=== PATIENT | male | born 1980 | race Caucasian/White ===

== ENCOUNTER 2017-12-14 19:01 | Emergency (ER) | payer BC ==
[2017-12-14] MEDS ORDERED: Albuterol/Ipratropium 3.0-0.5 MG/3 ML Neb Soln NEB ONE (19:22)
--- NOTE | 2017-12-14 19:22 | EDM.PDOC ---
ED HPI GENERAL MEDICAL PROBLEM - General Chief Complaint: General Stated Complaint: Productive cough/shortness of breath/congestion Time Seen by Provider: 12/14/17 19:10 Source of Information: Reports: Patient History Limitations: Reports: No Limitations - History of Present Illness INITIAL COMMENTS - FREE TEXT/NARRATIVE: 37 YO WM with PMH of IDDM, tobacco use with history of bronchitis presents to ER with 3 day history of productive cough with shortness of breath and associated nausea. Pt reports his symptoms started as a head cold and quickly progressed to chest congestion. Pt reports subjective fever/chills and some dizziness with coughing. Pt reports he smokes approx 1 ppd x25 years. Diabetes is well controlled per patient. Onset Date: 12/12/17 Duration: Day(s): (3) Location: Reports: Chest Quality: Reports: Burning Severity: Mild Worsens with: Reports: Breathing Associated Symptoms: Reports: cough w sputum, Fever/Chills, Nausea/Vomiting, Shortness of Breath Middle Chest Pain Score (Numeric/FACES): 6 - Related Data Allergies Allergy/AdvReac Type Severity Reaction Status Date / Time propoxyphene Allergy Excitabilit Verified 12/14/17 19:59 [From Darvocet-N 100] y Home Meds: Home Meds Azithromycin [Zithromax] 250 mg PO DAILY #6 tab 12/14/17 [Rx] Insulin Aspart [NovoLOG] 7 - 9 unit SQ WITHMEALSANDBED 12/14/17 [History] Insulin Glarg,Human.Rec.Analog [Lantus Solostar] 34 units SQ 1600 12/14/17 [ History] Lisinopril 5 mg PO BEDTIME 12/14/17 [History] Metoprolol Succinate 50 mg PO DAILY 12/14/17 [History] Past Medical History HEENT History: Reports: Impaired Vision, Retinal Detachment, Other (See Below). 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 Denies: Afib, Aneurysm, Blood Clots/VTE/DVT, CAD, Heart Murmur, High Cholesterol , Hypertension, ND, Syncope Other Cardiovascular History: History of probable PSVT in 2001, complete right bundle branch block, short [place] interval, borderline CHF, and d-dimer elevation on 04/15/12 with no apparent further workup despite transfer to [place] at that time? Respiratory History: Reports: None. Denies: Asthma, COPD, Intubation, Previous , PE, Pneumothorax, Sleep Apnea Gastrointestinal History: Reports: None. Denies: Celiac Disease, Cholelithiasis , Chronic Constipation, Chronic Diarrhea, Gastritis, GERD, GI Bleed, Hepatitis, Hiatal Hernia, Inflammatory Bowel Disease, Irritable Bowel Syndrome, Jaundice, Pancreatitis Genitourinary History: Reports: Chronic Renal Insuffiency, Diabetic Nephropathy. Denies: Acute Renal Failure, Dialysis, Prostate Disorder, Renal Calculus, STD, Urinary Incontinence, UTI, Recurrent Musculoskeletal History: Reports: Fracture, Other (See Below). Denies: Arthritis, Back Pain, Chronic, Gout, Neck Pain, Chronic, Osteoarthritis, RA, SLE Other Musculoskeletal History: Left forearm fracture requiring surgery as below Neurological History: Reports: None. Denies: Cerebral Aneurysms, Concussion, CVA, Headaches, Chronic, Head Trauma, Migraines, Neuropathy, Diabetic, Neuropathy, Peripheral, Parkinson's, Seizure, TIA Psychiatric History: Reports: None. Denies: Abuse, Victim of, ADD, ADHD, Addiction, Anxiety, Depression, Psych Hospitalization(s), PTSD, Suicide Attempt , Suicidal Ideation Endocrine/Metabolic History: Reports: Diabetes, Type I, IDDM. Denies: Hypothyroidism Hematologic History: Reports: None. Denies: Anemia, Blood Transfusion(s), Iron Deficiency Immunologic History: Reports: None. Denies: AIDS, HIV, SLE Oncologic (Cancer) History: Reports: None. Denies: Basal Cell Carcinoma, Leukemia, Lymphoma, Malignant Melanoma, Non-Hodgkin's Lymphoma, Squamous Cell Carcinoma Dermatologic History: Reports: None. Denies: Eczema, Psoriasis - Infectious Disease History Infectious Disease History: Reports: None. Denies: C-Difficile, Chicken Pox, Measles, Meningitis, Mononucleosis, MRSA, Mumps, Rheumatic Fever, Rubella, Scarlet Fever, Shingles, VRE - Past Surgical History Head Surgeries/Procedures: Reports: None HEENT Surgical History: Reports: Detached Retina, Laser Surgery, Oral Surgery. Denies: Adenoidectomy, Cataract Surgery, Myringotomy w Tube(s), Tonsillectomy Cardiovascular Surgical History: Reports: None. Denies: Cardiac Ablation, Varicose, Vascular Surgery Respiratory Surgical History: Reports: None. Denies: Thoracentesis GI Surgical History: Reports: None. Denies: Appendectomy, Cholecystectomy, Colonoscopy, EGD, Hernia, Abdominal, Hernia, Inguinal, Hernia Repair/Other Male Surgical History: Reports: Circumcision, Other (See Below). Denies: Vasectomy Other Male Surgeries/Procedures: Circumcision as an Endocrine Surgical History: Reports: None Neurological Surgical History: Reports: None. Denies: C-Spine, Discectomy, Laminectomy, Lumbar Spine, Vertebroplasty Musculoskeletal Surgical History: Reports: Arthroscopic Knee, Arthroscopic Procedure, ORIF, Other (See Below). Denies: Carpal Tunnel, Ganglion Cyst Other Musculoskeletal Surgeries/Procedures:: bilateral arthroscopic knee surgery with probable meniscal repairs in 2006, ORIF of her right forearm fracture on 01/14/12 Oncologic Surgical History: Reports: None Dermatological Surgical History: Reports: None - Past Imaging History Past Imaging History: Reports: Stress Testing (Cardiac stress test in 2001) Social & Family History - Family History HEENT: Reports: None Cardiac: Reports: None. Denies: Afib, AICD, Aneurysm, Arrhythmia, Blood Clots/ VTE/DVT, CAD, High Cholesterol, Hypertension, ND, Syncope Respiratory: Reports: None. Denies: Asthma, COPD, PE, Pneumothorax, Sleep Apnea GI: Reports: None. Denies: Celiac Disease, Cholelithiasis, Colon Polyps, GERD, GI bleed, Inflammatory Bowel Disease, Irritable Bowel Syndrome, PUD : Reports: None. Denies: Dialysis, Renal Calculus, Renal Disease/ Insufficiency OBGYN: Reports: None Musculoskeletal: Reports: None. Denies: Gout, RA, SLE Neurological: Reports: None. Denies: Alzheimers Disease, Cerebral Aneurysms, CVA, Dementia, Migraines, MS, Parkinson's, Seizure, TIA Psychiatric: Reports: None. Denies: Abuse, Victim of, ADD, ADHD, Anxiety, Depression, Psych Hospitalization(s), PTSD, Suicide Attempt Endocrine/Metabolic: Reports: Diabetes, type II, IDDM, Other (See Below). Denies: Hypothyroidism Other Endocrine/Metabolic Family History: IDDM in maternal and paternal grandmothers Hematologic: Reports: None. Denies: Anemia, Transfusion Reaction Immunologic: Reports: None. Denies: AIDS, HIV, SLE Dermatologic: Reports: None. Denies: Eczema, Psoriasis Oncologic: Reports: None. Denies: Colon, Hodgkin's Lymphoma, Leukemia, Lymphoma , Non-Hodgkin's Lymphoma, Prostate, Skin - Caffeine Use Caffeine Use: Reports: Soda (6 sodas per day). 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[employer]) ED ROS GENERAL - Review of Systems Review Of Systems: See Below Constitutional: Reports: Chills, Fatigue HEENT: Reports: No Symptoms Respiratory: Reports: Shortness of Breath, Wheezing, Cough, Sputum Cardiovascular: Reports: Lightheadedness Endocrine: Reports: No Symptoms GI/Abdominal: Reports: Nausea : Reports: No Symptoms Musculoskeletal: Reports: No Symptoms Skin: Reports: No Symptoms Neurological: Reports: No Symptoms Psychiatric: Reports: No Symptoms Hematologic/Lymphatic: Reports: No Symptoms Immunologic: Reports: No Symptoms ED EXAM, GENERAL - Physical Exam Exam: See Below Exam Limited By: No Limitations General Appearance: Alert, WD/WN, No Apparent Distress Eye Exam: Bilateral Eye: PERRL Ears: Normal External Exam, Normal Canal, Hearing Grossly Normal, Normal TMs Nose: Clear Rhinorrhea Throat/Mouth: Normal Inspection, Normal Lips, Normal Teeth, Normal Gums, Normal Oropharynx, Normal Voice, No Airway Compromise Head: Atraumatic, Normocephalic Neck: Normal Inspection, Supple, Non-Tender, Full Range of Motion Respiratory/Chest: No Respiratory Distress, No Accessory Muscle Use, Chest Non- Tender, Wheezing Cardiovascular: Normal Peripheral Pulses, Regular Rate, Rhythm, No Edema, No Gallop, No JVD, No Murmur, No Rub GI/Abdominal: Normal Bowel Sounds, Soft, Non-Tender, No Organomegaly, No Distention, No Abnormal Bruit, No Mass Back Exam: Normal Inspection, Full Range of Motion, NT Extremities: Normal Inspection, Normal Range of Motion, Non-Tender, Normal Capillary Refill, No Pedal Edema Neurological: Alert, Oriented, CN II-XII Intact, Normal Cognition, Normal Gait, Normal Reflexes, No Motor/Sensory Deficits Psychiatric: Normal Affect, Normal Mood Skin Exam: Warm, Dry, Intact, Normal Color, No Rash Lymphatic: No Adenopathy EKG INTERPRETATION EKG Date: 12/14/17 Time: 19:27 Rhythm: NSR Rate (Beats/Min): 87 [place]: Normal P-Wave: Present QRS: Normal ST-T: Normal QT: Normal Comparison: NA - No Prior EKG Course - Vital Signs Last Recorded V/S: Last Vital Signs Temp 36.9 C 12/14/17 19:11 Pulse 97 12/14/17 20:31 Resp 19 12/14/17 20:31 BP 177/96 H 12/14/17 20:31 Pulse Ox 969 H 12/14/17 20:31 - Orders/Labs/Meds Orders: Active Orders 24 hr Category Date Time Status Accu Check [Blood Glucose Check, Bedside] [RC] ONETIME Care 12/14/17 20:47 Active Cardiac Monitoring [RC] . DIRECTED Care 12/14/17 19:16 Active EKG Documentation Completion [RC] ASDIRECTED Care 12/14/17 19:17 Active Peripheral IV Care [RC] . DIRECTED Care 12/14/17 19:16 Active RT Aerosol Therapy [RC] ASDIRECTED Care 12/14/17 19:22 Active RT Post Treatment Assessment [RC] Click to Edit Care 12/14/17 20:39 Active RT Pre-Treatment Assessment [RC] Click to Edit Care 12/14/17 20:39 Active Chest 2V [CR] Stat Exams 12/14/17 19:16 Ordered Azithromycin [Zithromax] Med 12/14/17 20:45 Active 500 mg PO DAILY Sodium Chloride 0.9% [Normal Saline] 1,000 ml Med 12/14/17 20:34 Active IV .BOLUS EKG 12 Lead [EK] Routine Ther 12/14/17 19:16 Ordered Medication Orders Azithromycin (Zithromax) 500 mg PO DAILY TOMMIE Last Admin: 12/14/17 20:41 Dose: 500 mg Sodium Chloride (Normal Saline) 1,000 mls @ 999 mls/hr IV .BOLUS ONE Stop: 12/14/17 21:34 Last Admin: 12/14/17 20:46 Dose: 999 mls/hr Labs: Laboratory Tests 12/14/17 12/14/17 Range/Units 19:40 19:40 WBC 8.30 (5.00-10.00) 10^3/uL RBC 4.33 L (4.50-6.00) 10^6/uL Hgb 14.0 (13.0-17.0) g/dL Hct 38.9 L (40.0-52.0) % MCV 89.8 (82.0-92.0) fL MCH 32.3 H (27.0-31.0) pg MCHC 36.0 (32.0-36.0) g/dL RDW 11.7 (11.5-14.5) % Plt Count 234 (150-400) 10^3/uL MPV 10.3 (7.4-10.4) fL Immature Gran % (Auto) 0.1 (0.0-5.0) % Neut % (Auto) 71.3 H (50.0-70.0) % Lymph % (Auto) 12.4 L (20.0-40.0) % Drew % (Auto) 10.5 H (2.0-8.0) % Eos % (Auto) 5.2 H (1.0-3.0) % Baso % (Auto) 0.5 (0.0-1.0) % Immature Gran # (Auto) 0.01 (0.00-0.50) 10^3/uL Neut # (Auto) 5.92 (2.50-7.00) 10^3/uL Lymph # (Auto) 1.03 (1.00-4.00) 10^3/uL Drew # (Auto) 0.87 H (0.10-0.80) 10^3/uL Eos # (Auto) 0.43 H (0.10-0.30) 10^3/uL Baso # (Auto) 0.04 (0.00-0.10) 10^3/uL Sodium 135 L (136-145) mmol/L Potassium 4.4 (3.3-5.3) mmol/L Chloride 99 (98-115) mmol/L Carbon Dioxide 24.6 (21.0-32.0) mmol/L Anion Gap 15.8 H (5-15) mmol/L BUN 26 H (6-25) mg/dL Creatinine 2.03 H (0.51-1.17) mg/dL Est Cr Clr Drug Dosing 51.44 mL/min Estimated GFR (MDRD) 37 mL/min Glucose 488 mg/dL Calcium 8.7 (8.7-10.3) mg/dL Total Bilirubin 0.3 (0.2-1.0) mg/dL AST 13 L (15-37) U/L ALT 28 (12-78) U/L Alkaline Phosphatase 98 (46-116) IU/L Creatine Kinase 113 (26-276) U/L CK-MB (CK-2) 2.10 (0.00-4.30) ng/mL Troponin I 0.04 (0.00-0.070) ng/mL Total Protein 7.1 (6.4-8.2) g/dL Albumin 3.24 (3.00-4.80) g/dL Meds: Medications Generic Name Dose Route Start Last Admin Trade Name Freq PRN Reason Stop Dose Admin Azithromycin 500 mg 12/14/17 20:45 12/14/17 20:41 Zithromax PO 500 mg DAILY TOMMIE Administration Sodium Chloride 1,000 mls @ 999 mls/hr 12/14/17 20:34 12/14/17 20:46 Normal Saline IV 12/14/17 21:34 999 mls/hr .BOLUS ONE Administration Discontinued Medications Generic Name Dose Route Start Last Admin Trade Name Freq PRN Reason Stop Dose Admin Albuterol 8 gm 12/14/17 20:39 Ventolin Hfa INH 12/14/17 20:40 ONETIME ONE Albuterol/Ipratropium 3 ml 12/14/17 19:22 12/14/17 19:48 Duoneb 3.0-0.5 Mg/3 Ml NEB 12/14/17 19:23 3 ml ONETIME ONE Administration Azithromycin Confirm 12/14/17 20:40 12/14/17 20:47 Zithromax Administered 12/14/17 20:41 Not Given Dose 500 mg .ROUTE .STK-MED ONE Sodium Chloride Confirm 12/14/17 20:34 12/14/17 20:46 Normal Saline Administered 12/14/17 20:35 Not Given Dose 1,000 mls @ as directed .ROUTE .STK-MED ONE Insulin Human Regular 12 unit 12/14/17 20:34 12/14/17 20:45 Novolin R SUBCUT 12/14/17 20:35 12 unit ONETIME ONE Administration Protocol - Radiology Interpretation Free Text/Narrative:: CXR- NAD - Re-Assessments/Exams Free Text/Narrative Re-Assessment/Exam: 12/14/17 20:38 discussed lab work with patient- instructed pt to take home medications as directed Departure - Departure Time of Disposition: 20:40 Disposition: Home, Self-Care 01 Condition: Good Clinical Impression: Tobacco use, Noncompliance with medication regimen, Hyperglycemia Acute bronchitis Qualifiers: Bronchitis organism: unspecified organism Qualified Code(s): J20.9 - Acute bronchitis, unspecified Hypertension Qualifiers: Hypertension type: essential hypertension Qualified Code(s): I10 - Essential ( primary) hypertension - Discharge Information Prescriptions: Azithromycin [Zithromax] 250 mg PO DAILY #6 tab Instructions: Health Risks of Smoking, Smoking Tobacco Information, Acute Bronchitis, Adult Referrals: PCP,Not In Area [Primary Care Provider] - Kerwin Mathur MD [Physician] - Forms: ED Department Discharge Additional Instructions: 1. discharge home 2. z-fan 3. albuterol inhaler 4. instructed pt to take his home medications as recommended 5. follow up with PCP for further evaluation and treatment 6. return to ER for worsening symptoms - My Orders Last 24 Hours: My Active Orders 12/14/17 19:16 Cardiac Monitoring [RC] . DIRECTED Peripheral IV Care [RC] . DIRECTED Chest 2V [CR] Stat EKG 12 Lead [EK] Routine 12/14/17 19:17 EKG Documentation Completion [RC] ASDIRECTED 12/14/17 19:22 RT Aerosol Therapy [RC] ASDIRECTED 12/14/17 20:34 Sodium Chloride 0.9% [Normal Saline] 1,000 ml IV .BOLUS 12/14/17 20:39 RT Post Treatment Assessment [RC] Click to Edit RT Pre-Treatment Assessment [RC] Click to Edit 12/14/17 20:45 Azithromycin [Zithromax] 500 mg PO DAILY 12/14/17 20:47 Accu Check [Blood Glucose Check, Bedside] [RC] ONETIME - Assessment/Plan Last 24 Hours: My Active Orders 12/14/17 19:16 Cardiac Monitoring [RC] . DIRECTED Peripheral IV Care [RC] . DIRECTED Chest 2V [CR] Stat EKG 12 Lead [EK] Routine 12/14/17 19:17 EKG Documentation Completion [RC] ASDIRECTED 12/14/17 19:22 RT Aerosol Therapy [RC] ASDIRECTED 12/14/17 20:34 Sodium Chloride 0.9% [Normal Saline] 1,000 ml IV .BOLUS 12/14/17 20:39 RT Post Treatment Assessment [RC] Click to Edit RT Pre-Treatment Assessment [RC] Click to Edit 12/14/17 20:45 Azithromycin [Zithromax] 500 mg PO DAILY 12/14/17 20:47 Accu Check [Blood Glucose Check, Bedside] [RC] ONETIME Assessment:: 1. Acute bronchitis 2. uncontrolled IDDM- Pt reports he hasn't taken his insulin for 3 days 3. hypertension- pt reports he hasn't taken his BP medication for 3 days 4. noncompliance with medications 5. tobacco use/abuse Plan: 1. discharge home 2. z-fan 3. albuterol inhaler 4. instructed pt to take his home medications as recommended 5. follow up with PCP for further evaluation and treatment 6. return to ER for worsening symptoms
[2017-12-14 20:27] LABS: ANION GAP 15.8 mmol/L (5-15)
[2017-12-14] MEDS ORDERED: Sodium Chloride 0.9% 1,000 ML ONE (20:34)
[2017-12-14] MEDS ORDERED: Sodium Chloride 0.9% 1,000 ML IV ONE (20:34)
[2017-12-14] MEDS ORDERED: Insulin Regular, Human 100 Units/ML 10 ML Vial SUBCUT ONE (20:34)
[2017-12-14] MEDS ORDERED: Albuterol 8 GM Inhaler INH ONE (20:39)
[2017-12-14] MEDS ORDERED: Albuterol HFA 18 Gm Inhaler INH ONE (20:39)
[2017-12-14] MEDS ORDERED: Azithromycin 250 MG Tab ONE (20:40)
[2017-12-14] MEDS ORDERED: Azithromycin 250 MG Tab PO SCH (20:45)
[2017-12-14 20:49] VITALS: BP 166/82
== END 2017-12-14 21:50 | disposition home or self-care (01) ==
LOC: KA.ED 19:01
DX: J20.9 Acute bronchitis, unspecified (principal); E11.65 Type 2 diabetes mellitus with hyperglycemia; I13.0 Hypertensive heart and chronic kidney disease with heart failure and stage 1 through stage 4 chronic kidney disease, or unspecified chronic kidney disease; I50.9 Heart failure, unspecified; N18.9 Chronic kidney disease, unspecified; E11.21 Type 2 diabetes mellitus with diabetic nephropathy; Z91.19 Patient's noncompliance with other medical treatment and regimen; Z79.4 Long term (current) use of insulin; E11.22 Type 2 diabetes mellitus with diabetic chronic kidney disease; F17.210 Nicotine dependence, cigarettes, uncomplicated; Z88.8 Allergy status to other drugs, medicaments and biological substances
CPT/HCPCS: 71046; 80053; 82550; 82553; 82962; 84484; 85025; 94640; 96360; 96372; 99284; A9270; J1817; J7030; J7620-GY

== ENCOUNTER 2018-06-11 20:00 | Emergency (ER) | payer BC ==
--- NOTE | 2018-06-11 20:21 | EDM.PDOC ---
ED HPI GENERAL MEDICAL PROBLEM - General Chief Complaint: General Stated Complaint: SWOLLEN GLANDS Time Seen by Provider: 06/11/18 20:10 Source of Information: Reports: Patient History Limitations: Reports: No Limitations - History of Present Illness INITIAL COMMENTS - FREE TEXT/NARRATIVE: 38 YO WM presents to ER complaining of sore throat, left ear pain and swollen gland that began 3 days ago. Pt reports pain became worse tonight with associated left sided headache which started just prior to arrival. Pt denies any fever/chills. Pt reports he hasn't been able to take his blood pressure medication due to no access to his medications due to the weather and inability to get home. Pt denies nausea/vomiting, no neck pain, no body aches. Onset Date: 06/09/18 Duration: Day(s): (3) Location: Reports: Head, Face Quality: Reports: Ache Severity: Moderate Improves with: Reports: None Worsens with: Reports: None Associated Symptoms: Reports: No Other Symptoms, Headaches. Denies: Confusion, Cough, Fever/Chills, Malaise, Nausea/Vomiting, Shortness of Breath - Related Data Allergies Allergy/AdvReac Type Severity Reaction Status Date / Time propoxyphene Allergy Excitabilit Verified 06/11/18 20:14 [From Darmariellacet-N 100] y Home Meds: Home Meds Insulin Aspart [NovoLOG] 7 - 9 unit SQ WITHMEALSANDBED 12/14/17 [History] Insulin Glarg,Human.Rec.Analog [Lantus Solostar] 34 units SQ 1600 12/14/17 [ History] Amoxicillin 875 mg PO BID #20 tab 06/11/18 [Rx] Lisinopril 5 mg PO DAILY 06/11/18 [History] Metoprolol Succinate 50 mg PO DAILY 06/11/18 [History] Past Medical History HEENT History: Reports: Impaired Vision, Retinal Detachment, Other (See Below). 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 Denies: Afib, Aneurysm, Blood Clots/VTE/DVT, CAD, Heart Murmur, High Cholesterol , Hypertension, [place], Syncope Other Cardiovascular History: History of probable PSVT in 2002, complete right bundle branch block, short [place] interval, borderline CHF, and d-dimer elevation on 04/15/12 with no apparent further workup despite transfer to [place] at that time? Respiratory History: Reports: None. Denies: Asthma, COPD, Intubation, Previous , PE, Pneumothorax, Sleep Apnea Other Respiratory History: smoker Gastrointestinal History: Reports: None. Denies: Celiac Disease, Cholelithiasis , Chronic Constipation, Chronic Diarrhea, Gastritis, GERD, GI Bleed, Hepatitis, Hiatal Hernia, Inflammatory Bowel Disease, Irritable Bowel Syndrome, Jaundice, Pancreatitis Genitourinary History: Reports: Chronic Renal Insuffiency, Diabetic Nephropathy. Denies: Acute Renal Failure, Dialysis, Prostate Disorder, Renal Calculus, STD, Urinary Incontinence, UTI, Recurrent Musculoskeletal History: Reports: Fracture, Other (See Below). Denies: Arthritis, Back Pain, Chronic, Gout, Neck Pain, Chronic, Osteoarthritis, RA, SLE Other Musculoskeletal History: Left forearm fracture requiring surgery as below Neurological History: Reports: None. Denies: Cerebral Aneurysms, Concussion, CVA, Headaches, Chronic, Head Trauma, Migraines, Neuropathy, Diabetic, Neuropathy, Peripheral, Parkinson's, Seizure, TIA Psychiatric History: Reports: None. Denies: Abuse, Victim of, ADD, ADHD, Addiction, Anxiety, Depression, Psych Hospitalization(s), PTSD, Suicide Attempt , Suicidal Ideation Endocrine/Metabolic History: Reports: Diabetes, Type I, IDDM. Denies: Hypothyroidism Hematologic History: Reports: None. Denies: Anemia, Blood Transfusion(s), Iron Deficiency Immunologic History: Reports: None. Denies: AIDS, HIV, SLE Oncologic (Cancer) History: Reports: None. Denies: Basal Cell Carcinoma, Leukemia, Lymphoma, Malignant Melanoma, Non-Hodgkin's Lymphoma, Squamous Cell Carcinoma Dermatologic History: Reports: None. Denies: Eczema, Psoriasis - Infectious Disease History Infectious Disease History: Reports: None. Denies: C-Difficile, Chicken Pox, Measles, Meningitis, Mononucleosis, MRSA, Mumps, Rheumatic Fever, Rubella, Scarlet Fever, Shingles, VRE - Past Surgical History Head Surgeries/Procedures: Reports: None HEENT Surgical History: Reports: Detached Retina, Laser Surgery, Oral Surgery. Denies: Adenoidectomy, Cataract Surgery, Myringotomy w Tube(s), Tonsillectomy Cardiovascular Surgical History: Reports: None. Denies: Cardiac Ablation, Varicose, Vascular Surgery Respiratory Surgical History: Reports: None. Denies: Thoracentesis GI Surgical History: Reports: None. Denies: Appendectomy, Cholecystectomy, Colonoscopy, EGD, Hernia, Abdominal, Hernia, Inguinal, Hernia Repair/Other Male Surgical History: Reports: Circumcision, Other (See Below). Denies: Vasectomy Other Male Surgeries/Procedures: Circumcision as an Endocrine Surgical History: Reports: None Neurological Surgical History: Reports: None. Denies: C-Spine, Discectomy, Laminectomy, Lumbar Spine, Vertebroplasty Musculoskeletal Surgical History: Reports: Arthroscopic Knee, Arthroscopic Procedure, ORIF, Other (See Below). Denies: Carpal Tunnel, Ganglion Cyst Other Musculoskeletal Surgeries/Procedures:: bilateral arthroscopic knee surgery with probable meniscal repairs in 2006, ORIF of her right forearm fracture on 01/14/12 Oncologic Surgical History: Reports: None Dermatological Surgical History: Reports: None - Past Imaging History Past Imaging History: Reports: Stress Testing (Cardiac stress test in 2001) Social & Family History - Family History HEENT: Reports: None Cardiac: Reports: None. Denies: Afib, AICD, Aneurysm, Arrhythmia, Blood Clots/ VTE/DVT, CAD, High Cholesterol, Hypertension, [place], Syncope Respiratory: Reports: None. Denies: Asthma, COPD, PE, Pneumothorax, Sleep Apnea GI: Reports: None. Denies: Celiac Disease, Cholelithiasis, Colon Polyps, GERD, GI bleed, Inflammatory Bowel Disease, Irritable Bowel Syndrome, PUD : Reports: None. Denies: Dialysis, Renal Calculus, Renal Disease/ Insufficiency OBGYN: Reports: None Musculoskeletal: Reports: None. Denies: Gout, RA, SLE Neurological: Reports: None. Denies: Alzheimers Disease, Cerebral Aneurysms, CVA, Dementia, Migraines, MS, Parkinson's, Seizure, TIA Psychiatric: Reports: None. Denies: Abuse, Victim of, ADD, ADHD, Anxiety, Depression, Psych Hospitalization(s), PTSD, Suicide Attempt Endocrine/Metabolic: Reports: Diabetes, type II, IDDM, Other (See Below). Denies: Hypothyroidism Other Endocrine/Metabolic Family History: IDDM in maternal and paternal grandmothers Hematologic: Reports: None. Denies: Anemia, Transfusion Reaction Immunologic: Reports: None. Denies: AIDS, HIV, SLE Dermatologic: Reports: None. Denies: Eczema, Psoriasis Oncologic: Reports: None. Denies: Colon, Hodgkin's Lymphoma, Leukemia, Lymphoma , Non-Hodgkin's Lymphoma, Prostate, Skin - Caffeine Use Caffeine Use: Reports: Soda (6 sodas per day). Denies: Coffee, Energy Drinks, Tea - Living Situation & Occupation Living situation: Reports: Single (No children), Alone Occupation: Employed ([employer] [place] [employer] at [employer]) ED ROS GENERAL - Review of Systems Review Of Systems: See Below Constitutional: Reports: No Symptoms HEENT: Reports: Ear Pain, Throat Pain Respiratory: Reports: No Symptoms Cardiovascular: Reports: No Symptoms Endocrine: Reports: No Symptoms GI/Abdominal: Reports: No Symptoms : Reports: No Symptoms Musculoskeletal: Reports: No Symptoms Skin: Reports: No Symptoms Neurological: Reports: No Symptoms Psychiatric: Reports: No Symptoms Hematologic/Lymphatic: Reports: No Symptoms Immunologic: Reports: No Symptoms ED EXAM, GENERAL - Physical Exam Exam: See Below Exam Limited By: No Limitations General Appearance: Alert, WD/WN, No Apparent Distress Eye Exam: Bilateral Eye: PERRL Ears: Normal External Exam, Normal Canal, Hearing Grossly Normal. No: Normal TMs Ear Exam: Left Ear: Erythema, Tenderness, TM Dull Nose: Normal Inspection, Normal Mucosa, No Blood Throat/Mouth: Normal Inspection, Normal Lips, Normal Teeth, Normal Gums, Normal Oropharynx, Normal Voice, No Airway Compromise Head: Atraumatic, Normocephalic Neck: Normal Inspection, Supple, Non-Tender, Full Range of Motion Respiratory/Chest: No Respiratory Distress, Lungs Clear, Normal Breath Sounds, No Accessory Muscle Use, Chest Non-Tender Cardiovascular: Normal Peripheral Pulses, Regular Rate, Rhythm, No Edema, No Gallop, No JVD, No Murmur, No Rub GI/Abdominal: Normal Bowel Sounds, Soft, Non-Tender, No Organomegaly, No Distention, No Abnormal Bruit, No Mass Back Exam: Normal Inspection, Full Range of Motion, NT Extremities: Normal Inspection, Normal Range of Motion, Non-Tender, Normal Capillary Refill, No Pedal Edema Neurological: Alert, Oriented, CN II-XII Intact, Normal Cognition, Normal Gait, Normal Reflexes, No Motor/Sensory Deficits Psychiatric: Normal Affect, Normal Mood Skin Exam: Warm, Dry, Intact, Normal Color, No Rash Lymphatic: No Adenopathy Departure - Departure Time of Disposition: 20:28 Disposition: Home, Self-Care 01 Condition: Good Clinical Impression: Hypertension screening Otitis media Qualifiers: Laterality: left Recurrence: non-recurrent Spontaneous tympanic membrane rupture: without spontaneous rupture Upper respiratory infection Qualifiers: URI type: unspecified URI Qualified Code(s): J06.9 - Acute upper respiratory infection, unspecified - Discharge Information Prescriptions: Amoxicillin 875 mg PO BID #20 tab Instructions: Upper Respiratory Infection, Adult, [id number], Otitis Media, Adult, Hypertension Referrals: Hollie Taylor PA-C [Primary Care Provider] - Forms: ED Department Discharge Additional Instructions: 1. discharge home 2. amoxil 875mg PO BID x 10 days 3. motrin 800mg PO Q8 PRN pain 4. continue home medications 5. follow up with PCP for further evaluation and treatment 6. return to ER for worsening symptoms - Assessment/Plan Assessment:: 1. left otitis media 2. viral URI 3. hypertension Plan: 1. discharge home 2. amoxil 875mg PO BID x 10 days 3. motrin 800mg PO Q8 PRN pain 4. continue home medications 5. follow up with PCP for further evaluation and treatment 6. return to ER for worsening symptoms
[2018-06-11] MEDS: Amoxicillin 500 MG Cap PO ONE (20:28)
[2018-06-11] MEDS: Ketorolac 60 MG/2 ML SDV IM ONE (20:28)
[2018-06-11] MEDS: Lisinopril 5 MG Tab PO ONE (20:35)
[2018-06-11] MEDS: Metoprolol Succinate 50 MG Tab.ER PO ONE (20:35)
[2018-06-11 20:36] VITALS: BP 165/95
== END 2018-06-11 21:03 | disposition home or self-care (01) ==
LOC: KA.ED 20:00
DX: J06.9 Acute upper respiratory infection, unspecified (principal); H66.92 Otitis media, unspecified, left ear; I11.0 Hypertensive heart disease with heart failure; I50.9 Heart failure, unspecified; E10.9 Type 1 diabetes mellitus without complications; Z79.899 Other long term (current) drug therapy; Z88.8 Allergy status to other drugs, medicaments and biological substances
CPT/HCPCS: 96372; 99283; A9270-GY; J1885

== ENCOUNTER 2019-06-22 20:23 | Emergency (ER) | payer BC, OTHER ==
[2019-06-22 20:35] VITALS: BP 183/99; PULSE 108
--- NOTE | 2019-06-22 20:45 | EDM.PDOC ---
ED HPI GENERAL MEDICAL PROBLEM - General Chief Complaint: General Stated Complaint: COUGH, SUBJECTIVE FEVER Time Seen by Provider: 06/22/19 20:25 Source of Information: Reports: Patient History Limitations: Reports: No Limitations - History of Present Illness INITIAL COMMENTS - FREE TEXT/NARRATIVE: 39 YO WM presents to ER complaining of cough, congestion and subjective fever that began 2 days ago. Pt reports he is more tired than normal with some mild body aches. Pt denies any known sick contacts or recent travel. Pt 1 ppd tobacco history and denies influenza vaccine. Pt reports runny nose and nonproductive cough with some fevers and feeling sweaty. Pt denies chest pains or shortness of breath. No nausea/vomiting. Duration: Day(s): (2) Location: Reports: Generalized Severity: Mild Improves with: Reports: Rest Worsens with: Reports: None Associated Symptoms: Reports: Cough, Fever/Chills, Loss of Appetite, Malaise. Denies: Chest Pain, cough w sputum, Headaches, Nausea/Vomiting, Rash, Seizure, Shortness of Breath, Syncope, Weakness - Related Data Allergies Allergy/AdvReac Type Severity Reaction Status Date / Time propoxyphene Allergy Excitabilit Verified 06/22/19 20:32 [From Darvocet-N 100] y Home Meds: Home Meds Insulin Aspart [NovoLOG] 7 - 9 unit SQ WITHMEALSANDBED 12/14/17 [History] Insulin Glarg,Human.Rec.Analog [Lantus Solostar] 34 units SQ 1600 12/14/17 [ History] Amoxicillin 875 mg PO BID #20 tab 06/11/18 [Rx] Lisinopril 5 mg PO DAILY 06/11/18 [History] Metoprolol Succinate 50 mg PO DAILY 06/11/18 [History] Past Medical History HEENT History: Reports: Impaired Vision, Retinal Detachment, Other (See Below). 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 Denies: Afib, Aneurysm, Blood Clots/VTE/DVT, CAD, Heart Murmur, High Cholesterol , Hypertension, [place], Syncope Other Cardiovascular History: History of probable PSVT in 2001, complete right bundle branch block, short [place] interval, borderline CHF, and d-dimer elevation on 04/15/12 with no apparent further workup despite transfer to [place] at that time? Respiratory History: Reports: None. Denies: Asthma, COPD, Intubation, Previous , PE, Pneumothorax, Sleep Apnea Other Respiratory History: smoker Gastrointestinal History: Reports: None. Denies: Celiac Disease, Cholelithiasis , Chronic Constipation, Chronic Diarrhea, Gastritis, GERD, GI Bleed, Hepatitis, Hiatal Hernia, Inflammatory Bowel Disease, Irritable Bowel Syndrome, Jaundice, Pancreatitis Genitourinary History: Reports: Chronic Renal Insuffiency, Diabetic Nephropathy. Denies: Acute Renal Failure, Dialysis, Prostate Disorder, Renal Calculus, STD, Urinary Incontinence, UTI, Recurrent Musculoskeletal History: Reports: Fracture, Other (See Below). Denies: Arthritis, Back Pain, Chronic, Gout, Neck Pain, Chronic, Osteoarthritis, RA, SLE Other Musculoskeletal History: Left forearm fracture requiring surgery as below Neurological History: Reports: None. Denies: Cerebral Aneurysms, Concussion, CVA, Headaches, Chronic, Head Trauma, Migraines, Neuropathy, Diabetic, Neuropathy, Peripheral, Parkinson's, Seizure, TIA Psychiatric History: Reports: None. Denies: Abuse, Victim of, ADD, ADHD, Addiction, Anxiety, Depression, Psych Hospitalization(s), PTSD, Suicide Attempt , Suicidal Ideation Endocrine/Metabolic History: Reports: Diabetes, Type I, IDDM. Denies: Hypothyroidism Hematologic History: Reports: None. Denies: Anemia, Blood Transfusion(s), Iron Deficiency Immunologic History: Reports: None. Denies: AIDS, HIV, SLE Oncologic (Cancer) History: Reports: None. Denies: Basal Cell Carcinoma, Leukemia, Lymphoma, Malignant Melanoma, Non-Hodgkin's Lymphoma, Squamous Cell Carcinoma Dermatologic History: Reports: None. Denies: Eczema, Psoriasis - Infectious Disease History Infectious Disease History: Reports: None. Denies: C-Difficile, Chicken Pox, Measles, Meningitis, Mononucleosis, MRSA, Mumps, Rheumatic Fever, Rubella, Scarlet Fever, Shingles, VRE - Past Surgical History Head Surgeries/Procedures: Reports: None HEENT Surgical History: Reports: Detached Retina, Laser Surgery, Oral Surgery. Denies: Adenoidectomy, Cataract Surgery, Myringotomy w Tube(s), Tonsillectomy Cardiovascular Surgical History: Reports: None. Denies: Cardiac Ablation, Varicose, Vascular Surgery Respiratory Surgical History: Reports: None. Denies: Thoracentesis GI Surgical History: Reports: None. Denies: Appendectomy, Cholecystectomy, Colonoscopy, EGD, Hernia, Abdominal, Hernia, Inguinal, Hernia Repair/Other Male Surgical History: Reports: Circumcision, Other (See Below). Denies: Vasectomy Other Male Surgeries/Procedures: Circumcision as an Endocrine Surgical History: Reports: None Neurological Surgical History: Reports: None. Denies: C-Spine, Discectomy, Laminectomy, Lumbar Spine, Vertebroplasty Musculoskeletal Surgical History: Reports: Arthroscopic Knee, Arthroscopic Procedure, ORIF, Other (See Below). Denies: Carpal Tunnel, Ganglion Cyst Other Musculoskeletal Surgeries/Procedures:: bilateral arthroscopic knee surgery with probable meniscal repairs in 2006, ORIF of her right forearm fracture on 01/14/12 Oncologic Surgical History: Reports: None Dermatological Surgical History: Reports: None - Past Imaging History Past Imaging History: Reports: Stress Testing (Cardiac stress test in 2001) Social & Family History - Family History HEENT: Reports: None Cardiac: Reports: None. Denies: Afib, AICD, Aneurysm, Arrhythmia, Blood Clots/ VTE/DVT, CAD, High Cholesterol, Hypertension, [place], Syncope Respiratory: Reports: None. Denies: Asthma, COPD, PE, Pneumothorax, Sleep Apnea GI: Reports: None. Denies: Celiac Disease, Cholelithiasis, Colon Polyps, GERD, GI bleed, Inflammatory Bowel Disease, Irritable Bowel Syndrome, PUD : Reports: None. Denies: Dialysis, Renal Calculus, Renal Disease/ Insufficiency OBGYN: Reports: None Musculoskeletal: Reports: None. Denies: Gout, RA, SLE Neurological: Reports: None. Denies: Alzheimers Disease, Cerebral Aneurysms, CVA, Dementia, Migraines, MS, Parkinson's, Seizure, TIA Psychiatric: Reports: None. Denies: Abuse, Victim of, ADD, ADHD, Anxiety, Depression, Psych Hospitalization(s), PTSD, Suicide Attempt Endocrine/Metabolic: Reports: Diabetes, type II, IDDM, Other (See Below). Denies: Hypothyroidism Other Endocrine/Metabolic Family History: IDDM in maternal and paternal grandmothers Hematologic: Reports: None. Denies: Anemia, Transfusion Reaction Immunologic: Reports: None. Denies: AIDS, HIV, SLE Dermatologic: Reports: None. Denies: Eczema, Psoriasis Oncologic: Reports: None. Denies: Colon, Hodgkin's Lymphoma, Leukemia, Lymphoma , Non-Hodgkin's Lymphoma, Prostate, Skin - Caffeine Use Caffeine Use: Reports: Soda (6 sodas per day). 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[employer]) ED ROS GENERAL - Review of Systems Review Of Systems: See Below Constitutional: Reports: Fever, Chills, Malaise HEENT: Reports: Rhinitis Respiratory: Reports: Cough Cardiovascular: Reports: No Symptoms Endocrine: Reports: No Symptoms GI/Abdominal: Reports: No Symptoms : Reports: No Symptoms Musculoskeletal: Reports: No Symptoms Skin: Reports: No Symptoms Neurological: Reports: No Symptoms Psychiatric: Reports: No Symptoms Hematologic/Lymphatic: Reports: No Symptoms Immunologic: Reports: No Symptoms ED EXAM, GENERAL - Physical Exam Exam: See Below Exam Limited By: No Limitations General Appearance: Alert, WD/WN, No Apparent Distress Eye Exam: Bilateral Eye: PERRL Ears: Normal External Exam, Normal Canal, Hearing Grossly Normal, Normal TMs Ear Exam: Bilateral Ear: TM normal, Erythema Nose: Normal Inspection, Normal Mucosa, No Blood Throat/Mouth: Normal Inspection, Normal Lips, Normal Teeth, Normal Gums, Normal Oropharynx, Normal Voice, No Airway Compromise Head: Atraumatic, Normocephalic Neck: Normal Inspection, Supple, Non-Tender, Full Range of Motion Respiratory/Chest: No Respiratory Distress, Lungs Clear, Normal Breath Sounds, No Accessory Muscle Use, Chest Non-Tender Cardiovascular: Normal Peripheral Pulses, Regular Rate, Rhythm, No Edema, No Gallop, No JVD, No Murmur, No Rub GI/Abdominal: Normal Bowel Sounds, Soft, Non-Tender, No Organomegaly, No Distention, No Abnormal Bruit, No Mass Back Exam: Normal Inspection, Full Range of Motion, NT Extremities: Normal Inspection, Normal Range of Motion, Non-Tender, Normal Capillary Refill, No Pedal Edema Neurological: Alert, Oriented, CN II-XII Intact, Normal Cognition, Normal Gait, Normal Reflexes, No Motor/Sensory Deficits Psychiatric: Normal Affect, Normal Mood Skin Exam: Warm, Dry, Intact, Normal Color, No Rash Lymphatic: No Adenopathy Course - Vital Signs Last Recorded V/S: Last Vital Signs Temp 37.1 C 06/22/19 20:33 Pulse 108 H 06/22/19 20:33 Resp 20 06/22/19 20:33 BP 183/99 H 06/22/19 20:33 Pulse Ox 96 06/22/19 20:33 - Orders/Labs/Meds Orders: Active Orders 24 hr Category Date Time Status Isolation [COMM] Routine Oth 06/22/19 20:36 Ordered - Radiology Interpretation Free Text/Narrative:: CXR- NAD Departure - Departure Time of Disposition: 21:18 Disposition: Home, Self-Care 01 Condition: Good Clinical Impression: Upper respiratory disease, Fever - Discharge Information Instructions: Fever, Adult, Upper Respiratory Infection, Adult, [id number] Referrals: PCP,Not In Area [Primary Care Provider] - Forms: ED Department Discharge Sepsis Event Note - Evaluation Sepsis Screening Result: No Definite Risk - Focused Exam Vital Signs: Vital Signs Temp Pulse Resp BP Pulse Ox 06/22/19 20:33 37.1 C 108 H 20 183/99 H 96 Date Exam was Performed: 06/22/19 Time Exam was Performed: 21:15 - My Orders Last 24 Hours: My Active Orders 06/22/19 20:36 Isolation [COMM] Routine - Assessment/Plan Last 24 Hours: My Active Orders 06/22/19 20:36 Isolation [COMM] Routine Assessment:: 1. Viral URI Plan: 1. discharge home 2. zyrtec 10mg daily for cough and congestion 3. benadryl 50mg at night as needed for congestion/cough 4. Afrin NS 2 sprays each nostril twice a day x 3 days 5. motrin/tylenol for body aches and fever 6. return to ER for worsening symptoms 7. follow up with PCP for further evaluation and treatment
--- NOTE | 2019-06-22 20:59 | CR ---
[id number] RAD/RAD Chest PA And Lateral EXAM: RAD Chest PA And Lateral CLINICAL DATA: FEVER COMPARISON: CORRELATION IS MADE WITH THE EXAM OF 2017 FINDINGS: The lungs are clear. The cardiomediastinal contour is normal. The regional bones and soft tissues are unremarkable. IMPRESSION: NO ACUTE PROCESS. Jeo Enriquez MD 06/22/19 [id number] Thank you for allowing us to participate in the care of your patient.
== END 2019-06-22 21:25 | disposition home or self-care (01) ==
LOC: KA.ED 20:23
DX: J39.9 Disease of upper respiratory tract, unspecified (principal); I50.9 Heart failure, unspecified; E10.22 Type 1 diabetes mellitus with diabetic chronic kidney disease; N18.9 Chronic kidney disease, unspecified; E10.21 Type 1 diabetes mellitus with diabetic nephropathy; Z88.8 Allergy status to other drugs, medicaments and biological substances; Z79.899 Other long term (current) drug therapy
CPT/HCPCS: 71046; 87804; 99283-25

== ENCOUNTER 2020-06-14 16:45 | Emergency (ER) | payer BC ==
--- NOTE | 2020-06-14 17:04 | EDM.PDOC ---
ED HPI GENERAL MEDICAL PROBLEM - General Chief Complaint: Diabetic Complaint Stated Complaint: INSULIN ISSUE Time Seen by Provider: 06/14/20 17:04 Source of Information: Reports: Patient History Limitations: Reports: No Limitations - History of Present Illness INITIAL COMMENTS - FREE TEXT/NARRATIVE: Octaviano, 40-year-old male, awoke roughly 1500 hrs. today somewhat disoriented. A few minutes of confusion led to him calling a friend who presented and called 911 for ambulance transport here due to confusion. Blood sugar 79 in ambulance with no treatment initiated in route. He complains of mild headache, is mildly hypertensive. 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 Takes his insulin and oral medications typically upon awakening. Has had no intake, not even liquid since awakening. Denies fever chills. Denies any change in bowel or bladder. States he had 2 or 3 cigarettes from the time of occurrence until ambulance arrived for transport to the emergency department. Denies any dysfunction at this time stating it resolved from the time services were called for and his arrival to the emergency department. Headache is mild possibly a 5. Also similar occurrence last Friday, similar timing as he was awakening to prepare for that patient case coordinator. Event was not quite as prominent, although he did discuss this with a friend but did not seek medical services at that time. Onset: Today Onset Date: 06/14/20 Onset Time: 15:00 Duration: Hour(s):, Resolved Prior to Arrival Location: Reports: Generalized Severity: Moderate Improves with: Reports: Other (Time) Worsens with: Reports: None Associated Symptoms: Reports: Headaches Headache Pain Score (Numeric/FACES): 5 - Related Data Allergies Allergy/AdvReac Type Severity Reaction Status Date / Time propoxyphene Allergy Excitabilit Verified 06/22/19 20:32 [From Darvocet-N 100] y Home Meds: Home Meds Insulin Aspart [NovoLOG] 7 - 9 unit SQ WITHMEALSANDBED 12/14/17 [History] Insulin Glarg,Human.Rec.Analog [Lantus Solostar] 34 units SQ 1600 12/14/17 [History] Lisinopril 5 mg PO DAILY 06/11/18 [History] Metoprolol Succinate 50 mg PO DAILY 06/11/18 [History] Past Medical History HEENT History: Reports: Impaired Vision, Retinal Detachment, Other (See Below). 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 Denies: Afib, Aneurysm, Blood Clots/VTE/DVT, CAD, Heart Murmur, High Cholesterol, Hypertension, FL, Syncope Other Cardiovascular History: History of probable PSVT in 2001, complete right bundle branch block, short UT interval, borderline CHF, and d-dimer elevation on 04/15/12 with no apparent further workup despite transfer to [place] at that time? Respiratory History: Reports: None. Denies: Asthma, COPD, Intubation, Previous, PE, Pneumothorax, Sleep Apnea Other Respiratory History: smoker Gastrointestinal History: Reports: None. Denies: Celiac Disease, Cholelithiasis, Chronic Constipation, Chronic Diarrhea, Gastritis, GERD, GI Bleed, Hepatitis, Hiatal Hernia, Inflammatory Bowel Disease, Irritable Bowel Syndrome, Jaundice, Pancreatitis Genitourinary History: Reports: Chronic Renal Insuffiency, Diabetic Nephropathy. Denies: Acute Renal Failure, Dialysis, Prostate Disorder, Renal Calculus, STD, Urinary Incontinence, UTI, Recurrent Musculoskeletal History: Reports: Fracture, Other (See Below). Denies: Arthritis, Back Pain, Chronic, Gout, Neck Pain, Chronic, Osteoarthritis, RA, SLE Other Musculoskeletal History: Left forearm fracture requiring surgery as below Neurological History: Reports: None. Denies: Cerebral Aneurysms, Concussion, CVA, Headaches, Chronic, Head Trauma, Migraines, Neuropathy, Diabetic, Neuropathy, Peripheral, Parkinson's, Seizure, TIA Psychiatric History: Reports: None. Denies: Abuse, Victim of, ADD, ADHD, Addiction, Anxiety, Depression, Psych Hospitalization(s), PTSD, Suicide Attempt, Suicidal Ideation Endocrine/Metabolic History: Reports: Diabetes, Type I, IDDM. Denies: Hypothyroidism Hematologic History: Reports: None. Denies: Anemia, Blood Transfusion(s), Iron Deficiency Immunologic History: Reports: None. Denies: AIDS, HIV, SLE Oncologic (Cancer) History: Reports: None. Denies: Basal Cell Carcinoma, Leukemia, Lymphoma, Malignant Melanoma, Non-Hodgkin's Lymphoma, Squamous Cell Carcinoma Dermatologic History: Reports: None. Denies: Eczema, Psoriasis - Infectious Disease History Infectious Disease History: Reports: None. Denies: C-Difficile, Chicken Pox, Measles, Meningitis, Mononucleosis, MRSA, Mumps, Rheumatic Fever, Rubella, Scarlet Fever, Shingles, VRE - Past Surgical History Head Surgeries/Procedures: Reports: None HEENT Surgical History: Reports: Detached Retina, Laser Surgery, Oral Surgery. Denies: Adenoidectomy, Cataract Surgery, Myringotomy w Tube(s), Tonsillectomy Cardiovascular Surgical History: Reports: None. Denies: Cardiac Ablation, Varicose, Vascular Surgery Respiratory Surgical History: Reports: None. Denies: Thoracentesis GI Surgical History: Reports: None. Denies: Appendectomy, Cholecystectomy, Colonoscopy, EGD, Hernia, Abdominal, Hernia, Inguinal, Hernia Repair/Other Male Surgical History: Reports: Circumcision, Other (See Below). Denies: Vasectomy Other Male Surgeries/Procedures: Circumcision as an infant Endocrine Surgical History: Reports: None Neurological Surgical History: Reports: None. Denies: C-Spine, Discectomy, Laminectomy, Lumbar Spine, Vertebroplasty Musculoskeletal Surgical History: Reports: Arthroscopic Knee, Arthroscopic Procedure, ORIF, Other (See Below). Denies: Carpal Tunnel, Ganglion Cyst Other Musculoskeletal Surgeries/Procedures:: bilateral arthroscopic knee surgery with probable meniscal repairs in 2006, ORIF of her right forearm fracture on 01/14/12 Oncologic Surgical History: Reports: None Dermatological Surgical History: Reports: None - Past Imaging History Past Imaging History: Reports: Stress Testing (Cardiac stress test in 2001) Social & Family History - Family History Family Medical History: No Pertinent Family History HEENT: Reports: None Cardiac: Reports: None. Denies: Afib, AICD, Aneurysm, Arrhythmia, Blood Clots/VTE/DVT, CAD, High Cholesterol, Hypertension, FL, Syncope Respiratory: Reports: None. Denies: Asthma, COPD, PE, Pneumothorax, Sleep Apnea GI: Reports: None. Denies: Celiac Disease, Cholelithiasis, Colon Polyps, GERD, GI bleed, Inflammatory Bowel Disease, Irritable Bowel Syndrome, PUD : Reports: None. Denies: Dialysis, Renal Calculus, Renal Disease/Insufficiency OBGYN: Reports: None Musculoskeletal: Reports: None. Denies: Gout, RA, SLE Neurological: Reports: None. Denies: Alzheimers Disease, Cerebral Aneurysms, CVA, Dementia, Migraines, MS, Parkinson's, Seizure, TIA Psychiatric: Reports: None. Denies: Abuse, Victim of, ADD, ADHD, Anxiety, Depression, Psych Hospitalization(s), PTSD, Suicide Attempt Endocrine/Metabolic: Reports: Diabetes, type II, IDDM, Other (See Below). Denies: Hypothyroidism Other Endocrine/Metabolic Family History: IDDM in maternal and paternal grandmothers Hematologic: Reports: None. Denies: Anemia, Transfusion Reaction Immunologic: Reports: None. Denies: AIDS, HIV, SLE Dermatologic: Reports: None. Denies: Eczema, Psoriasis Oncologic: Reports: None. Denies: Colon, Hodgkin's Lymphoma, Leukemia, Lymphoma, Non-Hodgkin's Lymphoma, Prostate, Skin - Tobacco Use Tobacco Use Status *Q: Current Every Day Tobacco User - Caffeine Use Caffeine Use: Reports: Soda (6 sodas per day). 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 ED EXAM, GENERAL - Physical Exam Exam: See Below Free Text/Narrative:: Alert, oriented, in no acute distress. There is no cyanosis nor pallor. HEENT is negative discharge or deformity. PERRLA no icterus no injection limited nondilated funduscopy benign. Neck is soft supple with no lymphadenopathy no JVD nor bruit. He does complain of mild pain to the musculature predominantly left side of her neck, radiating upwards with a mild headache rating a 5 on a scale of 10. Facial symmetry is noted with pink moist mucous membranes strong odor of smoking product is noted. Thorax is raspy with no wheezes nor crackles. Cardiac is S1 is 2 with no appreciated murmur. No flank pain no abdominal tenderness. Bowel sounds are present no megaly appreciated. rectal is deferred. There is no edema to the lower extremities. Cardiac apical rate correlates with radial pulse bilateral. There is no dysfunction to motion nor gait. EMS relates he was able to ambulate to the ambulance for transport as well as from the ambulance into the emergency department suite, with no dysfunction of gait. #1 Interpretation EKG Date: 06/14/20 Time: 17:00 Rhythm: NSR Rate (Beats/Min): 81 [place]: Normal P-Wave: Present QRS: Normal ST-T: Normal QT: Normal Comparison: NA - No Prior EKG Course - Vital Signs Last Recorded V/S: Last Vital Signs Temp 97 F 06/14/20 17:52 Pulse 82 06/14/20 18:18 Resp 18 06/14/20 18:18 BP 153/79 H 06/14/20 18:18 Pulse Ox 98 06/14/20 18:18 - Orders/Labs/Meds Orders: Active Orders 24 hr Category Date Time Status EKG Documentation Completion [RC] ASDIRECTED Care 06/14/20 17:03 Active Sodium Chloride 0.9% @ 999 MLS/HR (1000ml) Med 06/14/20 17:46 Ordered Sodium Chloride 0.9% [Normal Saline] 1,000 ml IV .BOLUS EKG 12 Lead [EK] Stat Ther 06/14/20 17:01 Ordered Medication Orders Sodium Chloride (Normal Saline) 1,000 mls @ 999 mls/hr IV .BOLUS ONE Stop: 06/14/20 18:46 Last Admin: 06/14/20 17:49 Dose: 999 mls/hr Documented by: CRISTINE Labs: Laboratory Tests 06/14/20 06/14/20 06/14/20 Range/Units 17:01 17:01 17:35 WBC 12.87 H (5.00-10.00) 10^3/uL RBC 4.62 (4.50-6.00) 10^6/uL Hgb 14.9 (13.0-17.0) g/dL Hct 42.4 (40.0-52.0) % MCV 91.8 (82.0-92.0) fL MCH 32.3 H (27.0-31.0) pg MCHC 35.1 (32.0-36.0) g/dL RDW 12.2 (11.5-14.5) % Plt Count 248 (150-400) 10^3/uL MPV 10.2 (7.4-10.4) fL Immature Gran % (Auto) 0.1 (0.0-5.0) % Neut % (Auto) 87.0 H (50.0-70.0) % Lymph % (Auto) 6.3 L (20.0-40.0) % [place] % (Auto) 4.7 (2.0-8.0) % Eos % (Auto) 1.6 (1.0-3.0) % Baso % (Auto) 0.3 (0.0-1.0) % Neut # (Auto) 11.20 H (2.50-7.00) 10^3/uL Lymph # (Auto) 0.81 L (1.00-4.00) 10^3/uL [place] # (Auto) 0.60 (0.10-0.80) 10^3/uL Eos # (Auto) 0.21 (0.10-0.30) 10^3/uL Baso # (Auto) 0.04 (0.00-0.10) 10^3/uL Immature Gran # (Auto) 0.01 (0.00-0.50) 10^3/uL Sodium 139 (136-145) mmol/L Potassium 5.8 H (3.5-5.1) mmol/L Chloride 107 (98-107) mmol/L Carbon Dioxide 22.4 (21.0-32.0) mmol/L Anion Gap 15.4 H (5-15) mmol/L BUN 49 H (7-18) mg/dL Creatinine 2.17 H (0.51-1.17) mg/dL Est Cr Clr Drug Dosing 46.72 mL/min Estimated GFR (MDRD) 34 mL/min Glucose 93 (70-140) mg/dL Calcium 8.7 (8.7-10.3) mg/dL Total Bilirubin 0.4 (0.2-1.0) mg/dL AST 12 L (15-37) U/L ALT 20 (14-63) U/L Alkaline Phosphatase 90 (46-116) U/L Total Protein 7.2 (6.4-8.2) g/dL Albumin 3.63 (3.40-5.00) g/dL Specimen Type Urincc Urine Color Yellow (YELLOW) Urine Appearance Clear (CLEAR) Urine pH 5.5 (5.0-9.0) Ur Specific [place] 1.020 (1.005-1.030) Urine Protein 100 H (NEGATIVE) mg/dL Urine Glucose (UA) Negative (NEGATIVE) mg/dL Urine Ketones Negative (NEGATIVE) mg/dL Urine Occult Blood Moderate H (NEGATIVE) Urine Nitrite Negative (NEGATIVE) Urine Bilirubin Negative (NEGATIVE) Urine Urobilinogen 0.2 (0.2-1.0) E.U./dL Ur Leukocyte Esterase Negative (NEGATIVE) Urine RBC 0-5 (0-5) /HPF Urine WBC 0-5 (0-5) /HPF Ur Epithelial Cells Rare /LPF Urine Bacteria Rare (NONE TO FEW) /HPF Meds: Medications Generic Name Dose Route Start Last Admin Trade Name Freq PRN Reason Stop Dose Admin Sodium Chloride 1,000 mls @ 999 mls/hr 06/14/20 17:46 06/14/20 17:49 Normal Saline IV 06/14/20 18:46 999 mls/hr .BOLUS ONE Administration Discontinued Medications Generic Name Dose Route Start Last Admin Trade Name Freq PRN Reason Stop Dose Admin Sodium Chloride Confirm 06/14/20 17:48 06/14/20 17:52 Normal Saline Administered 06/14/20 17:49 Not Given Dose 1,000 mls @ as directed .ROUTE .STK-MED ONE Metoprolol Tartrate 5 mg 06/14/20 17:20 06/14/20 17:23 Metoprolol Tartrate 5 Mg/5 Ml Sdv IVPUSH 06/14/20 17:21 5 mg ONETIME ONE Administration - Re-Assessments/Exams Free Text/Narrative Re-Assessment/Exam: 06/14/20 18:11 States that he has had a high intake of bananas, 7 or 8 in the past 3 days which he feels is attributing to the elevation in his potassium. He states he is not previously had hyperkalemia but has had a slightly elevated creatinine. We do discuss that he should consider Dexcom monitoring as likely this event was precipitated by hypoglycemia with a partial Somogyi effect as his glucose naturally elevated without any intake. Free Text/Narrative Re-Assessment/Exam: 06/14/20 18:45 Noted improvement to his blood pressure as well as heart rate with the 5 mg of Lopressor. We did discuss in detail the elevation in his creatinine with decreased kidney function as well as his hyper kalemia. We did discuss potential need for a continuous glucose monitor. Departure - Departure Time of Disposition: 18:49 Disposition: Home, Self-Care 01 Condition: Fair Clinical Impression: Hyperkalemia, Diabetes mellitus with proteinuria Hypertension Qualifiers: Hypertension type: essential hypertension Qualified Code(s): I10 - Essential (primary) hypertension Renal failure Qualifiers: Acute renal failure type: unspecified Chronic kidney disease stage: stage 3 (moderate) - Discharge Information *PRESCRIPTION DRUG MONITORING PROGRAM REVIEWED*: Not Applicable *COPY OF PRESCRIPTION DRUG MONITORING REPORT IN PATIENT MARIVEL: Not Applicable Instructions: Insulin Treatment for Diabetes Mellitus, Hyperkalemia, [id number], Hypertension, Adult, [id number], Proteinuria Referrals: PCP,Not In Area [Primary Care Provider] - Forms: ED Department Discharge Additional Instructions: The findings today show no acute need for hospitalization. You need to maintain better fluid intake, predominantly water. Your glucose is levels should be monitored more frequency, and you would greatly benefit from having a continuous glucose monitor such as a Dexcom where you are able to set alarms. The likelihood of a low glucose event is very predominant as we have noted your glucose elevate from ambulance reading to the lab draw here in the emergency department without any supplementation or intake of any kind. Continue your medications as directed. Your kidney function as well as electrolytes need to be reevaluated prior to returning to work as well as consideration for monitoring capabilities. Please contact your clinic as soon as they open in the morning to get an appointment with your physician to discuss readings and reports of the kidney function and electrolyte findings obtained here in the emergency department. 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 Call or return to the emergency department if symptoms should recur Sepsis Event Note (ED) - Focused Exam Vital Signs: Vital Signs Temp Pulse Pulse Resp BP BP Pulse Ox 06/14/20 18:18 82 18 153/79 H 98 06/14/20 17:52 97 F 79 17 138/92 H 98 06/14/20 17:23 80 169/94 H 06/14/20 17:11 97.1 F 88 15 164/100 H 100 - Problem List & Annotations (1) Hypertension SNOMED Code(s): 16315675 Code(s): I10 - ESSENTIAL (PRIMARY) HYPERTENSION Status: Chronic Priority: High Current Visit: Yes Onset Date: 10/22/16 Qualifiers: Hypertension type: essential hypertension Qualified Code(s): I10 - Essential (primary) hypertension (2) IDDM (insulin dependent diabetes mellitus) SNOMED Code(s): 08616234 Code(s): E11.9 - TYPE 2 DIABETES MELLITUS WITHOUT COMPLICATIONS; Z79.4 - MCC (CURRENT) USE OF INSULIN Status: Chronic Priority: Medium Current Visit: No Annotation/Comment:: Stable by patient history, although patient does not take home Accu-Cheks (3) Tobacco use SNOMED Code(s): 239299677 Code(s): Z72.0 - TOBACCO USE Status: Chronic Current Visit: No (4) Hyperkalemia SNOMED Code(s): 01301010 Code(s): E87.5 - HYPERKALEMIA Status: Acute Current Visit: Yes (5) Renal failure SNOMED Code(s): 31646105 Code(s): N19 - UNSPECIFIED KIDNEY FAILURE Status: Acute Current Visit: Yes Qualifiers: Acute renal failure type: unspecified Chronic kidney disease stage: stage 3 (moderate) (6) Diabetes mellitus with proteinuria SNOMED Code(s): 64303499 Code(s): E11.29 - TYPE 2 DIABETES MELLITUS W OTH DIABETIC KIDNEY COMPLICATION; R80.9 - PROTEINURIA, UNSPECIFIED Status: Acute Current Visit: Yes - Problem List Review Problem List Initiated/Reviewed/Updated: Yes - My Orders Last 24 Hours: My Active Orders 06/14/20 17:01 EKG 12 Lead [EK] Stat 06/14/20 17:03 EKG Documentation Completion [RC] ASDIRECTED 06/14/20 17:46 Sodium Chloride 0.9% @ 999 MLS/HR (1000ml) Sodium Chloride 0.9% [Normal Saline] 1,000 ml IV .BOLUS - Assessment/Plan Last 24 Hours: My Active Orders 06/14/20 17:01 EKG 12 Lead [EK] Stat 06/14/20 17:03 EKG Documentation Completion [RC] ASDIRECTED 06/14/20 17:46 Sodium Chloride 0.9% @ 999 MLS/HR (1000ml) Sodium Chloride 0.9% [Normal Saline] 1,000 ml IV .BOLUS Plan: The findings today show no acute need for hospitalization. You need to maintain better fluid intake, predominantly water. Your glucose is levels should be monitored more frequency, and you would greatly benefit from having a continuous glucose monitor such as a Dexcom where you are able to set alarms. The likelihood of a low glucose event is very predominant as we have noted your glucose elevate from ambulance reading to the lab draw here in the emergency department without any supplementation or intake of any kind. Continue your medications as directed. Your kidney function as well as electrolytes need to be reevaluated prior to returning to work as well as consideration for monitoring capabilities. Please contact your clinic as soon as they open in the morning to get an appointment with your physician to discuss readings and reports of the kidney function and electrolyte findings obtained here in the emergency department. 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 Call or return to the emergency department if symptoms should recur.
[2020-06-14] MEDS: Metoprolol Tartrate 5 MG/5 ML SDV IVPUSH ONE (17:23)
[2020-06-14 17:38] LABS: ANION GAP 15.4 mmol/L (5-15)
[2020-06-14] MEDS: Sodium Chloride 0.9% 1,000 ML IV ONE (17:49)
[2020-06-14] MEDS: Sodium Chloride 0.9% 1,000 ML ONE (17:52)
[2020-06-14 18:42] VITALS: BP 152/93; PULSE 20
== END 2020-06-14 19:05 | disposition home or self-care (01) ==
LOC: KA.ED 16:45
DX: I13.0 Hypertensive heart and chronic kidney disease with heart failure and stage 1 through stage 4 chronic kidney disease, or unspecified chronic kidney disease (principal); E11.22 Type 2 diabetes mellitus with diabetic chronic kidney disease; N18.30 Chronic kidney disease, stage 3 unspecified; I50.9 Heart failure, unspecified; E87.5 Hyperkalemia; R80.9 Proteinuria, unspecified; E11.21 Type 2 diabetes mellitus with diabetic nephropathy; F17.200 Nicotine dependence, unspecified, uncomplicated; Z88.8 Allergy status to other drugs, medicaments and biological substances; Z79.4 Long term (current) use of insulin; Z79.899 Other long term (current) drug therapy
CPT/HCPCS: 80053; 81001; 85025; 93005; 96374; 99285; 99285-25; J3490; J7030

== ENCOUNTER 2021-12-30 16:17 | Emergency (ER) | payer BC ==
[2021-12-30] MEDS ORDERED: Sodium Chloride 0.9% 10 ML Syringe FLUSH PRN (16:19)
[2021-12-30] MEDS ORDERED: Sodium Chloride 0.9% 1,000 ML IV ONE (16:20)
[2021-12-30 17:00] VITALS: BP 145/95; PULSE 104
[2021-12-30 17:27] LABS: ANION GAP 19.6 mmol/L (5-15)
[2021-12-30 17:28] LABS: RESPIRATORY SYNCYTIAL VIR NAA NEGATIVE (NEGATIVE)
[2021-12-30 17:29] LABS: CORONAVIRUS COVID-19 NAA POSITIVE (NEGATIVE)
[2021-12-30] MEDS ORDERED: HYDROmorphone 1 MG/ML Syringe IVPUSH ONE (17:56)
[2021-12-30] MEDS ORDERED: Apixaban 5 MG Tab PO ONE (18:26)
[2021-12-30] MEDS ORDERED: Ondansetron 4 MG Tab.DIS PO ONE (18:54)
== END 2021-12-30 19:10 | disposition home or self-care (01) ==
LOC: KA.ED 16:17
DX: U07.1 COVID-19 (principal); I12.9 Hypertensive chronic kidney disease with stage 1 through stage 4 chronic kidney disease, or unspecified chronic kidney disease; E10.22 Type 1 diabetes mellitus with diabetic chronic kidney disease; E10.40 Type 1 diabetes mellitus with diabetic neuropathy, unspecified; N18.9 Chronic kidney disease, unspecified; R79.89 Other specified abnormal findings of blood chemistry; F17.210 Nicotine dependence, cigarettes, uncomplicated; Z28.310 Unvaccinated for COVID-19
CPT/HCPCS: 0241U; 36415; 71046; 80053; 81001; 83605; 84484; 85025; 85379; 96361; 96374; 99284; A9270; J1170; J3490; J7030; 93010

== ENCOUNTER 2023-08-12 14:14 | Emergency (ER) | payer BC ==
[2023-08-12] MEDS ORDERED: Sodium Chloride 0.9% 10 ML Syringe FLUSH PRN (14:19)
[2023-08-12 14:35] LABS: BASOPHILS ABSOLUTE AUTO 0.03 10^3/uL (0.00-0.10); BASOPHILS PERCENT AUTO 0.2 % (0.0-1.0); EOSINOPHILS ABSOLUTE AUTO 0.33 10^3/uL (0.10-0.30); EOSINOPHILS PERCENT AUTO 2.6 % (1.0-3.0); HEMATOCRIT 40.1 % (40.0-52.0); HEMOGLOBIN 13.1 g/dL (13.0-17.0); IMMATURE GRAN ABSOLUTE AUTO 0.02 10^3/uL (0.00-0.50); IMMATURE GRAN PERCENT AUTO 0.2 % (0.0-5.0); LYMPHOCYTES ABSOLUTE AUTO 1.08 10^3/uL (1.00-4.00); LYMPHOCYTES PERCENT AUTO 8.5 % (20.0-40.0); MEAN CORPUSCULAR HGB CONC 32.7 g/dL (32.0-36.0); MEAN CORPUSCULAR VOLUME 94.8 fL (82.0-92.0); MEAN PLATELET VOLUME 9.8 fL (7.4-10.4); MONOCYTES ABSOLUTE AUTO 0.78 10^3/uL (0.10-0.80); MONOCYTES PERCENT AUTO 6.1 % (2.0-8.0); NEUTROPHILS ABSOLUTE AUTO 10.46 10^3/uL (2.50-7.00); NEUTROPHILS PERCENT AUTO 82.4 % (50.0-70.0); PLATELET COUNT,PLT 257 10^3/uL (150-400); RED BLOOD CELL COUNT 4.23 10^6/uL (4.50-6.00); RED CELL DISTRIBUTION WIDTH 12.9 % (11.5-14.5)
[2023-08-12 14:50] LABS: ALBUMIN 3.29 g/dL (3.40-5.00); BILIRUBIN TOTAL 0.5 mg/dL (0.2-1.0); CALCIUM 8.5 mg/dL (8.7-10.3); CARBON DIOXIDE,CO2 23.3 mmol/L (21.0-32.0); CREATININE 2.47 mg/dL (0.51-1.17); EST CRCL DRUG DOSING (CG) 39.82 mL/min
[2023-08-12 14:55] LABS: ANION GAP 12.8 mmol/L (5-15); POTASSIUM,K 6.1 mmol/L (3.5-5.1)
[2023-08-12] MEDS ORDERED: Lisinopril 20 MG Tab PO SCH (15:45)
[2023-08-12] MEDS: Metoprolol Tartrate 5 MG/5 ML SDV IVPUSH ONE (16:02)
[2023-08-12] MEDS: Lisinopril 10 MG Tab PO ONE (16:03)
[2023-08-12 18:52] VITALS: BP 150/90; PULSE 83
== END 2023-08-12 17:00 | disposition home or self-care (01) ==
LOC: KA.ED 14:14
DX: E10.649 Type 1 diabetes mellitus with hypoglycemia without coma (principal); E10.22 Type 1 diabetes mellitus with diabetic chronic kidney disease; E10.21 Type 1 diabetes mellitus with diabetic nephropathy; N18.9 Chronic kidney disease, unspecified; Z79.4 Long term (current) use of insulin; Z79.899 Other long term (current) drug therapy; Z72.0 Tobacco use
CPT/HCPCS: 36415; 80053; 82947; 83605; 85025; 96374; 99285; A9270; J3490